=== PATIENT | male | born 1950 | race American Indian/Alaskan Native ===

== ENCOUNTER 2018-06-07 18:18 | Emergency (ER) | payer OTHER ==
[~2018-06-07] VITALS: Ht 170.2 cm; Wt 65.8 kg
[~2018-06-07 18:18] MED LIST: ALBU90OI INH; Catapres0.1 MG PO; DULO30; LORA.5; METF500; NIZA300; Naprosyn500 MG PO; OMEP20ER; OXYACE5T MT; PROM25 PO; PROP10; Percocet 5-3251 EACH PO; TELM40
[2018-06-08] MEDS ORDERED: OXYB5 PO (13:00)
[2018-06-08] MEDS ORDERED: OSTEO BI-FLEX1 EACH PO (13:00)
[2018-06-08] MEDS ORDERED: ESCI20 (13:00)
[2018-06-08] MEDS ORDERED: LEVFLO500 PO (14:19)
== END 2018-06-07 20:45 | disposition left against medical advice (07) ==
LOC: ER 18:18
DX: Z53.21 Procedure and treatment not carried out due to patient leaving prior to being seen by health care provider (principal)

== ENCOUNTER → 2018-06-27 | Outpatient (CLI) | payer OTHER ==
[~2018-06-27] MED LIST changes: +ESCI20; +LEVFLO500 PO; +OSTEO BI-FLEX1 EACH PO; +OXYB5 PO
[2018-06-27 11:48] LABS: Source, Urine Clean Catch
[2018-06-27 12:46] LABS: Red Blood Cells, Urine 50-100 /hpf (0-2)
[2018-06-27 12:47] LABS: Bacteria Few /hpf; Squamous Epithelial Cells Not Seen /hpf (Few)
[2018-06-27 12:51] LABS: Renal Epithelial Rare /hpf (0-Rare)
[2018-06-27 12:52] LABS: Mucus Light (0-Heavy)
== END | disposition home or self-care (01) ==
LOC: LAB SHORT 11:46 → LAB 11:46 → LAB FUT 06-11 15:20
PROVIDERS: Urology
DX: R31.0 Gross hematuria (principal)
CPT/HCPCS: 81015; 87086

== ENCOUNTER 2019-04-30 13:26 | Inpatient (IN) | payer OTHER ==
[~2019-04-30] VITALS: Ht 170.2 cm; Wt 66.5 kg
[~2019-04-30 13:26] MED LIST changes: +ALBU90OI61 INH; +Depo-Testos200 MG/ML IM; +ESCI20 PO
[2019-04-30] MEDS ORDERED: OXYC10TA19 PO (13:50)
[2019-04-30] MEDS ORDERED: Catapres0.2 MG PO (13:51)
[2019-04-30] MEDS ORDERED: OXYB5 PO (13:51)
[2019-04-30] MEDS ORDERED: ESCI20 PO (13:51)
[2019-04-30 14:06] LABS: BASOPHILS ABSOLUTE AUTO 0.03 K/mm3 (0.00-0.23); BASOPHILS PERCENT AUTO 0 % (0-2); EOSINOPHILS ABSOLUTE AUTO 0.23 K/mm3 (0.00-0.68); EOSINOPHILS PERCENT AUTO 2 % (0-6); Hematocrit 34.2 % (37.0-53.0); Hemoglobin 11.5 g/dL (13.5-17.5); IMMATURE GRAN ABSOLUTE AUTO 0.06 K/mm3 (0.00-0.10); IMMATURE GRAN PERCENT AUTO 1 % (0-1); LYMPHOCYTES ABSOLUTE AUTO 0.79 K/mm3 (0.84-5.20); LYMPHOCYTES PERCENT AUTO 7 % (21-46); MONOCYTES ABSOLUTE AUTO 0.63 K/mm3 (0.16-1.47); MONOCYTES PERCENT AUTO 6 % (4-13); Mean Corpuscular HGB 32.8 pg (26.0-34.0); Mean Corpuscular HGB Conc 33.6 g/dL (31.5-36.5); Mean Corpuscular Volume 97 fL (80-100); Mean Platelet Volume 8.8 fL (9.1-12.4); NEUTROPHILS ABSOLUTE AUTO 9.56 K/mm3 (1.96-9.15); NEUTROPHILS PERCENT AUTO 85 % (41-73); Platelet Count 208 K/mm3 (150-400); RDW Coefficient Variation 13.2 % (11.7-14.2); RDW Standard Deviation 47.3 fL (35.1-46.3); Red Blood Cell Count 3.51 M/mm3 (4.30-5.90)
[2019-04-30 14:13] LABS: Alanine Aminotransfer (ALT/SGP 23 U/L (12-78); Albumin, Blood 2.8 g/dL (3.4-5.0); Albumin/Globulin Ratio 0.7 (0.8-1.8); Alk Phos 102 U/L (50-136); Anion Gap 5 mmol/L (6-16); Aspartate Aminotrans (AST/SGOT 29 U/L (12-37); Bilirubin, Total 0.2 mg/dL (0.1-1.0); Blood Urea Nitrogen 7 mg/dL (8-24); Bun/Creatinine Ratio 13.8 (12.0-20.0); CO2, Blood 35 mmol/L (21-32); Calcium, Blood 10.3 mg/dL (8.5-10.1); Chloride, Blood 93 mmol/L (98-108); Creatinine, Blood 0.51 mg/dL (0.60-1.20); Globulin, Blood 3.9 g/dL (2.2-4.0); Glomerular Filtration Rate >60 (60-); Glucose, Blood 96 mg/dL (70-99); Potassium, Blood 3.4 mmol/L (3.5-5.5); Sodium, Blood 133 mmol/L (136-145); Total Protein, Blood 6.7 g/dL (6.4-8.2); Troponin I <0.015 ng/mL (0.000-0.040)
[2019-04-30 17:17] LABS: International Normalized Ratio 0.99; Prothrombin Time Results 10.6 Sec (9.7-11.5)
--- NOTE | 2019-04-30 18:00 | NUR ---
ASSUMED PATIENT CARE. PATIENT ARRIVED FROM ED, NO SIGNS OF ACUTE RESPIRATORY DISTRESS.
[2019-04-30] MEDS ORDERED: FLUT1DIS5 INH (19:31)
--- NOTE | 2019-04-30 19:31 | NUR ---
PATIENT ARRIVED FROM ED THIS EVENING. HISTORY OF BLADDER CANCER, TUMORS PRESSING ONE ON VENA CAVA, AND ONE IN ESOPHAGEAL REGION ALSO PRESSING ON INTERNAL JUGULAR. PATIENT ENDORSES SOB, BUT DENIES CHEST PAIN AND PRESSURE. PATIENT ON 10 L OXYGEN WITH O2 SATURATION OF 98-99%. AT BEDSIDE. PATIENT AND ENDORSE THAT PATIENT'S VOICE HAS BEEN CHANGING AND HE HAS INCREASED DIFFICULTY SPEAKING IN THE LAST FEW DAYS. DR. CUENCA CONSULTED DR. ALLRED FROM RADIATION THERAPY TO COME TO BEDSIDE TO ASSESS PATIENT. PLAN IS TO HAVE PATIENT GO TO RADIATION WHILE HERE AT HOSPITAL.
[2019-04-30] MEDS ORDERED: ALBU90OI INH (19:32)
--- NOTE | 2019-04-30 22:00 | NUR ---
EVENT NOTE CONTACTED BY PHARMACY AND NOTIFIED THAT HEPARIN GTT WAS NOT CHARTED STARTED. PER ANDER JACKSON, HEPARIN WAS VERIFIED RUNNING DURING BEDSIDE REPORT AT 1900. CALLED DAY SHIFT RN'S OTONIEL AND PETAR AND DETERMINED THAT HEPARIN GTT WAS STARTED AT 1815 AND WAS SCANNED BUT MUST NOT HAVE BEEN SUBMITTED THROUGH TO CHART. UPDATED ANDER JACKSON AND WILL CONTINUE PER PHARMACY ORDERS.
[2019-05-01 00:26] LABS: BASOPHILS ABSOLUTE AUTO 0.01 K/mm3 (0.00-0.23); BASOPHILS PERCENT AUTO 0 % (0-2); EOSINOPHILS ABSOLUTE AUTO 0.01 K/mm3 (0.00-0.68); EOSINOPHILS PERCENT AUTO 0 % (0-6); Hematocrit 33.9 % (37.0-53.0); IMMATURE GRAN ABSOLUTE AUTO 0.05 K/mm3 (0.00-0.10); IMMATURE GRAN PERCENT AUTO 1 % (0-1); LYMPHOCYTES ABSOLUTE AUTO 0.26 K/mm3 (0.84-5.20); LYMPHOCYTES PERCENT AUTO 2 % (21-46); MONOCYTES ABSOLUTE AUTO 0.05 K/mm3 (0.16-1.47); MONOCYTES PERCENT AUTO 1 % (4-13); Mean Corpuscular HGB 32.2 pg (26.0-34.0); Mean Corpuscular HGB Conc 32.4 g/dL (31.5-36.5); Mean Corpuscular Volume 99 fL (80-100); Mean Platelet Volume 8.3 fL (9.1-12.4); NEUTROPHILS ABSOLUTE AUTO 10.55 K/mm3 (1.96-9.15); NEUTROPHILS PERCENT AUTO 96 % (41-73); Platelet Count 189 K/mm3 (150-400); RDW Coefficient Variation 13.2 % (11.7-14.2); RDW Standard Deviation 48.2 fL (35.1-46.3); Red Blood Cell Count 3.42 M/mm3 (4.30-5.90); White Blood Cell Count 10.93 K/mm3 (4.00-11.30)
[2019-05-01 00:46] LABS: Alanine Aminotransfer (ALT/SGP 23 U/L (12-78); Albumin, Blood 2.7 g/dL (3.4-5.0); Albumin/Globulin Ratio 0.7 (0.8-1.8); Alk Phos 98 U/L (50-136); Anion Gap 5 mmol/L (6-16); Aspartate Aminotrans (AST/SGOT 26 U/L (12-37); Bilirubin, Total 0.2 mg/dL (0.1-1.0); Blood Urea Nitrogen 9 mg/dL (8-24); Bun/Creatinine Ratio 15.6 (12.0-20.0); CO2, Blood 35 mmol/L (21-32); Calcium, Blood 9.9 mg/dL (8.5-10.1); Chloride, Blood 94 mmol/L (98-108); Creatinine, Blood 0.58 mg/dL (0.60-1.20); Globulin, Blood 3.7 g/dL (2.2-4.0); Glomerular Filtration Rate >60 (60-); Glucose, Blood 97 mg/dL (70-99); Magnesium, Blood 1.4 mg/dL (1.6-2.4); Potassium, Blood 4.1 mmol/L (3.5-5.5); Sodium, Blood 134 mmol/L (136-145); Total Protein, Blood 6.4 g/dL (6.4-8.2)
[2019-05-01 00:50] LABS: International Normalized Ratio 1.02; Prothrombin Time Results 10.9 Sec (9.7-11.5)
--- NOTE | 2019-05-01 07:36 | NUR ---
SHIFT SUMMARY PT A&O; AT BEDSIDE; O2 SATS >94 ON 8 L NC; LUNG SOUNDS DIM; VSS; DENIES CHEST PAIN; C/O SOB AT TIMES AND BECOMES QUITE ANXIOUS; IMPROVES W/ COACHING; SLEPT A FEW HOURS IN BETWEEN INTERVENTIONS; C/O PAIN OF JOINTS STATES OXYCODONE PROVIDES RELIEF; EDUCATION ON FLUTTER VALVE AND PURSED LIP BREATHING GIVEN; RT PROVIDED SIGNIFICANT EDUCATION WELL; HEP GTT INFUSING; MONITORED BY PHARMACY; CALL LIGHT IN REACH; BED IN LOWEST POSITION; REPORT GIVEN TO DAY SHIFT RN.
--- NOTE | 2019-05-01 08:32 | NUR ---
Call from the Cancer Center stating that pt should be transported from PCU to their center today for radaiation appointment at 0930. Called cancer center at this time to verify accomodations for heparin gtt as well as immobility of pt and inability to stand/transfer from the bed without maximum assistance. Nurse confirmed ability of the center to accomodate for his immobility, and Dr. Avila would prefer that the heparin gtt be off for the hour of his radiation treatment.
--- NOTE | 2019-05-01 08:34 | NUR ---
AM NOTE... ASSUMED CARE OF PT APROX 0700. PT IS A&Ox4 AND WAS ADMITTED FOR ACUTE RESP FAILURE. PT IS ON 8L HI FLOW NC WITH O2 SATS AT 100%, PT BECOMES VERY DYSPNIC WITH ANY ACTIVITY AND BECOMES VERY ANXIOUS WELL. PT'S OTHER VS STABLE AT THIS TIME. L/S RUB AND COARSNESS HEARD T/O LOUDER ON THE FRONT THAN THE PT'S BACK. PT'S HAS BEEN TURNING UP THE PT'S O2 AFTER NURSING STAFF AND RT STAFF HAVE PROVIDED EDUCATION TO THE PT AND HIS , PT STATES THAT IF HE CAN'T FEEL THE O2 IN HIS NOSE HE IS NOT GETTIN ANY OXYGEN AND BEGINS TO PANIC. PT'S AT THE BEDSIDE. CALL LIGHT IN REACH WILL CONTINUE TO MONITOR.
--- NOTE | 2019-05-01 08:46 | NUR ---
Dr. Perez states heparin gtt will be stopped. Cancer center updated MANUEL Duran, notified.
--- NOTE | 2019-05-01 12:27 | NUR ---
Pt returned via [facility] to PCU room 11.
--- NOTE | 2019-05-01 19:21 | NUR ---
arrived from pcu, report received from staff, pt a+o but very anxious, able to work on 3 L but feels sob even though stats stay above 90, family has moved o2 up to 8 and pt insists on keeping it there, explained ramifications of high o2 levels, resting in bed talking to visitors, when doing hand off pt asked to have o2 level raised back to 8.
[2019-05-02 04:48] LABS: Bicarbonate Venous 33.6 mmol/L (24.0-30.0); PCO2 Venous 47.3 mmHg (38-42); PO2 Venous 126 mmHg (38-42); pH Blood Venous 7.47 (7.34-7.37)
[2019-05-02 05:47] LABS: BASOPHILS ABSOLUTE AUTO 0.01 K/mm3 (0.00-0.23); BASOPHILS PERCENT AUTO 0 % (0-2); EOSINOPHILS PERCENT AUTO 0 % (0-6); Hematocrit 29.5 % (37.0-53.0); Hemoglobin 9.6 g/dL (13.5-17.5); IMMATURE GRAN ABSOLUTE AUTO 0.05 K/mm3 (0.00-0.10); IMMATURE GRAN PERCENT AUTO 0 % (0-1); LYMPHOCYTES ABSOLUTE AUTO 0.19 K/mm3 (0.84-5.20); LYMPHOCYTES PERCENT AUTO 1 % (21-46); MONOCYTES PERCENT AUTO 2 % (4-13); Mean Corpuscular HGB 31.8 pg (26.0-34.0); Mean Corpuscular HGB Conc 32.5 g/dL (31.5-36.5); Mean Corpuscular Volume 98 fL (80-100); NEUTROPHILS ABSOLUTE AUTO 13.14 K/mm3 (1.96-9.15); NEUTROPHILS PERCENT AUTO 97 % (41-73); Platelet Count 196 K/mm3 (150-400); RDW Coefficient Variation 13.2 % (11.7-14.2); RDW Standard Deviation 46.9 fL (35.1-46.3); Red Blood Cell Count 3.02 M/mm3 (4.30-5.90); White Blood Cell Count 13.59 K/mm3 (4.00-11.30)
[2019-05-02 06:12] LABS: Anion Gap 3 mmol/L (6-16); Blood Urea Nitrogen 17 mg/dL (8-24); CO2, Blood 34 mmol/L (21-32); Calcium, Blood 9.9 mg/dL (8.5-10.1); Chloride, Blood 98 mmol/L (98-108); Creatinine, Blood 0.53 mg/dL (0.60-1.20); Glomerular Filtration Rate >60 (60-); Glucose, Blood 118 mg/dL (70-99); Potassium, Blood 4.2 mmol/L (3.5-5.5); Sodium, Blood 135 mmol/L (136-145)
--- NOTE | 2019-05-02 07:32 | NUR ---
SHIFT SUMMARY PT IS PLEASANT AND COOPERATIVE WITH CARE. HE IS AAOX4. STARTED THE NIGHT ON 10LNC WAS INCREASED BY RT TO 11LNC, SATS IN MID 90'S. PT IS VERY ACTIVITY INTOLERANT AND DESATS EASILY WITH MINIMAL MOVEMENT. TREATED FOR PAIN PER EMAR TO GOOD EFFECT. TREATED FOR HTN PER EMAR. VSS. IN THE ROOM MUCH OF THE NIGHT AND IS HELPFUL WITH CARE. NO ACUTE CHANGES THIS NIGHT. REPORT TO ONCOMING RN.
--- NOTE | 2019-05-02 15:41 | NUR ---
[facility] PT ON HIS WAY TO THE [facility] FOR TREATMENTS, TAKEN VIA [facility] BY [facility]
[2019-05-03 04:40] LABS: BASOPHILS ABSOLUTE AUTO 0.02 K/mm3 (0.00-0.23); BASOPHILS PERCENT AUTO 0 % (0-2); EOSINOPHILS PERCENT AUTO 0 % (0-6); Hematocrit 31.2 % (37.0-53.0); Hemoglobin 10.1 g/dL (13.5-17.5); IMMATURE GRAN ABSOLUTE AUTO 0.07 K/mm3 (0.00-0.10); IMMATURE GRAN PERCENT AUTO 0 % (0-1); LYMPHOCYTES ABSOLUTE AUTO 0.11 K/mm3 (0.84-5.20); LYMPHOCYTES PERCENT AUTO 1 % (21-46); MONOCYTES ABSOLUTE AUTO 0.27 K/mm3 (0.16-1.47); MONOCYTES PERCENT AUTO 2 % (4-13); Mean Corpuscular HGB 31.9 pg (26.0-34.0); Mean Corpuscular HGB Conc 32.4 g/dL (31.5-36.5); Mean Corpuscular Volume 98 fL (80-100); Mean Platelet Volume 8.5 fL (9.1-12.4); NEUTROPHILS ABSOLUTE AUTO 15.95 K/mm3 (1.96-9.15); NEUTROPHILS PERCENT AUTO 97 % (41-73); Platelet Count 173 K/mm3 (150-400); RDW Coefficient Variation 13.2 % (11.7-14.2); RDW Standard Deviation 47.5 fL (35.1-46.3); Red Blood Cell Count 3.17 M/mm3 (4.30-5.90); White Blood Cell Count 16.42 K/mm3 (4.00-11.30)
[2019-05-03 04:56] LABS: Albumin, Blood 2.5 g/dL (3.4-5.0); Anion Gap 4 mmol/L (6-16); Blood Urea Nitrogen 23 mg/dL (8-24); Bun/Creatinine Ratio 43.6 (12.0-20.0); CO2, Blood 34 mmol/L (21-32); Calcium, Blood 10.1 mg/dL (8.5-10.1); Chloride, Blood 99 mmol/L (98-108); Creatinine, Blood 0.53 mg/dL (0.60-1.20); Glomerular Filtration Rate >60 (60-); Glucose, Blood 117 mg/dL (70-99); Phosphorus, Blood 1.9 mg/dL (2.5-4.9); Potassium, Blood 4.3 mmol/L (3.5-5.5); Sodium, Blood 137 mmol/L (136-145)
--- NOTE | 2019-05-03 05:45 | NUR ---
SHIFT SUMMARY PT HAS HAD NO ACUTE CHANGES THIS SHIFT, MEDICATED PER MAR FOR PAIN & ANXIETY, CLONIDINE ADMIN 1X FOR SBP 139, SPOUSE ACTIVE IN CARE & REMAINED @ BEDSIDE UNTIL 29, PT SLEEPING AT THIS TIME, CALL LIGHT IN REACH, WILL CONT TO MONITOR UNTIL REPORT GIVEN TO DAY RN.
--- NOTE | 2019-05-03 17:56 | NUR ---
SHIFT SUMMARY PT IS A/O X 4 BUT DROWSY AT TIMES. HE C/O ONGOING PAIN. PAIN MEDS HAVE BEEN GIVEN ORDERED AND EFFECTIVE. PT CONTINUES ON HI FLOW OXYGEN MANAGED BY RT. PT IS SCHEDULED FOR A SLEEP STUDY TONIGHT. PT WENT WITH VIA MEDICAL TRANSPORT TO HIS RADIATION TX. AFTER HIS RETURN DR ALLRED CALLED AND ASKED THAT DR MARI BE NOTIFIED OF A POSSIBLE PLUERAL EFFUSION, THE MESSAGE WAS RELAYED AND A 2 VIEW CXR WAS ORDERED AND COMPLETED. CHARGE NURSE WAS SUCCESSFUL IN PLACING A POWERGLIDE IN THE RUE. EDEMA REMAINS TO BUE AND THEY ARE ELEVATED ON PILLOWS. HAS REMAINED AT THE BEDSIDE THROUGHOUT THE DAY AND HELPS MAKES PATIENTS NEEDS KNOWN TO STAFF. PT IS RESTING IN BED AND CALL LIGHT IS IN REACH.
--- NOTE | 2019-05-04 00:10 | NUR ---
REPORT CALLED TO MANAGER CARGO 2320 PT XFER'D TO PCU7, REPORT GIVEN TO MANUEL BEST, FAMILY AT BEDSIDE DURING XFER AND MOVED PT'S BELONGINGS.
--- NOTE | 2019-05-04 00:51 | NUR ---
ASSUMED CARE OF PATIENT AT [facility] 2315 FROM MEDICAL ARIELLA Allen RN. PATIENT ARRIVED TO UNIT WITH EYES CLOSED; DROWSY; WAKES TO VERBAL STIMULUS AND TOUCH. PATIENT REPORTS PAIN THROUGHOUT. ORDER FOR ASP PRECAUTIONS; MEDS CRUSHED IN APPLESAUCE; WINSTON'S REPORTS PATIENT HAS BEEN TAKING MULTIPLE MEDICATIONS WTIH WATER "JUST FINE". PATIENT DENIES NUMBNESS, TINGLING, DIZZINESS OR NAUSEA. L/S ABSENT ON RIGHT SIDE. SR/ST ON TELE; OXYGEN SATURATION ABOVE 90% ON 60 FIO2 BIPAP; RESPIRATORY RATE 12-14. AIRVO FOR BREAKS FIO2 82%. BEDREST; Q2H TURNS. PG MARIMAR. PATIENT'S FAMILY ACCOMPANIED PATIENT TO PCU; LEFT HOME AROUND 0030. PATIENT INCONTINENT OF URINE UPON ARRIVAL TO UNIT; BEDDING AND GOWN CHANGED. 2X PIV S/L. PATIENT CURRENTLY RESTING IN BED; CALL LIGHT IN REACH; BED IN LOWEST POSISTION; BED ALARM ON; WILL CONTINUE TO MONITOR AND ASSESS UNTIL END OF SHIFT.
[2019-05-04 04:15] LABS: Hemoglobin 9.8 g/dL (13.5-17.5); Mean Corpuscular HGB 31.8 pg (26.0-34.0); Mean Corpuscular HGB Conc 31.6 g/dL (31.5-36.5); Mean Platelet Volume 8.9 fL (9.1-12.4); Platelet Count 153 K/mm3 (150-400); RDW Coefficient Variation 13.3 % (11.7-14.2); RDW Standard Deviation 49.5 fL (35.1-46.3); Red Blood Cell Count 3.08 M/mm3 (4.30-5.90); White Blood Cell Count 14.14 K/mm3 (4.00-11.30)
[2019-05-04 04:18] LABS: Mean Corpuscular Volume 101 fL (80-100)
[2019-05-04 04:37] LABS: Albumin, Blood 2.4 g/dL (3.4-5.0); Anion Gap 3 mmol/L (6-16); Blood Urea Nitrogen 24 mg/dL (8-24); CO2, Blood 37 mmol/L (21-32); Chloride, Blood 98 mmol/L (98-108); Creatinine, Blood 0.63 mg/dL (0.60-1.20); Glomerular Filtration Rate >60 (60-); Glucose, Blood 113 mg/dL (70-99); Phosphorus, Blood 2.5 mg/dL (2.5-4.9); Potassium, Blood 4.8 mmol/L (3.5-5.5); Sodium, Blood 138 mmol/L (136-145)
--- NOTE | 2019-05-04 06:13 | NUR ---
WINSTON SLEPT ABOUT 5 HOURS SINCE ARRIVAL TO PCU. TITRATED DOWN TO 70% FIO2 ON AIRVO AND SWITCHED FROM BIPAP SETTINGS 60% TO CPAP SETTINGS. VSS. BLOOD PRESSURE IMPROVED WITH PRN MEDICATION. WILL CONTINUE TO MONITOR AND ASSESS UNTIL END OF SHIFT.
--- NOTE | 2019-05-04 11:40 | NUR ---
Pt resting in bed upon arrival. Pt reports 7/10 pain and states the pain is in his bones. Pt reports the pain does not get below a 7/10 with current regimen. Pt also reports dyspnea that worsens with exertion. Pt's family at bedside. Listened as Pt's expresses concerns with not knowing if Pt will return to baseline and assisting Pt with his care. She also expresses concerns regarding the need to go back to work at some point before her PTO runs out. Discussed the possibility of needing to consider highering caregivers to assit with care needs. Discussed pain regimen further with Pt and family agreeing to try the toradol to help manage pain. No other concerns reported at this time. Spoke with bedside MANUEL Castro, discussed case, and reported Pt's pain. Palliative Care will remain available for symptom management and therapeutic visits.
--- NOTE | 2019-05-04 14:34 | NUR ---
Brief F/U visit for symptom management. Pt reports Toradol has helped but is reporting 5/10 pain. Offered oxycodone and Pt is agreeable. Spoke with bedside RN Anna and reported Pt's pain. Anna will offer oxycodone. No other concerns reported at this time. Palliative Care will remain available.
--- NOTE | 2019-05-04 17:40 | NUR ---
SHIFT SUMMARY PATIENT MEDICATED FREQUENTLY FOR PAIN ALTERNATING OXYCODONE AND TORADOL TO GOOD EFFECT. PATIENT ALTERNATING BETWEEN BIPAP AT 60% FI02 AND AIRVO AT 69% THIS SHIFT. PATIENT REPOSITIONED Q2 IN BED. WEEPING EDEMA IN ARMS. PATIETN DROWSY AT TIMES. AT BEDSIDE. DR. CUENCA AND DR. CHOWDARY CONSULTED ON PATIENT. PATIENT HAD CHEST PHYSIOTHERAPY THIS AFTERNOON. PATIENT MAY HAVE THORACENTISIS. CHEST XRAY IN AM.
--- NOTE | 2019-05-04 19:15 | NUR ---
RECEIVED REPORT FROM MANUEL HERRERA. ASSUMED CARE OF PT. PT SITTING UP IN BED COMFORTABLY AT THIS TIME, NO S/S ACUTE DISTRESS NOTED. O2 SATS STABLE AT THIS TIME ON AIRVO. AT THE BEDSIDE. PT DENIES ANY NEEDS AT THIS TIME, CALL LIGHT AND POSSESSIONS IN REACH, WILL CONTINUE TO MONITOR.
--- NOTE | 2019-05-04 19:32 | NUR ---
THIS RN AT BEDSIDE OBTAINING VS. PT O2 SATURATION DROPPED TO 74-78% ON AIRVO. PT STATES, "I NEED THE BIPAP." PT PLACED ON BIPAP. O2 SATURATIONS RETURNED TO 90-92%. REQUESTING BREATHING TX AND "MORE AIR." PT PLACED IN POSITION OF COMFORT, RESPIRATORY THERAPY PAGED. WILL CONTINUE TO MONITOR AND REASSESS.
--- NOTE | 2019-05-04 22:00 | NUR ---
PT REPORTING CHEST PAIN, HR TRENDING IN THE 140'S. CALLED CHARLINE NURSE PRACTITIONER REGARDING PT CONDITION. PHYSICIAN TO ENTER ORDERS INTO [employer]. WILL CONTINUE TO MONITOR.
--- NOTE | 2019-05-04 23:41 | NUR ---
UPDATE: PT VOICING NO FURTHER C/O CP, APPEARS TO BE RESTING COMFORTABLY. O2 SATS REMAIN STABLE ON BIPAP, HR IN 100'S AT THIS TIME.
--- NOTE | 2019-05-05 06:52 | NUR ---
SHIFT SUMMARY PT SLEEPING PEACEFULLY, NO S/S ACUTE DISTRESS NOTED. WAS MONITORED EVERY 1-2 HOURS WITH NEEDS MET. O2 SATS AND BP STABLE. SLEPT ON AND OFF T/O NIGHT. DENIES ANY FURTHER NEEDS AT THIS TIME. CALL LIGHT AND POSSESSIONS IN REACH, BED IN LOWEST POSITION.
--- NOTE | 2019-05-05 13:58 | NUR ---
Pt resting in bed with at bedside. Bedside RN present offering pain medication. Pt reports 7/10 pain. Asked Pt and if they had any questions regarding Dr Mendoza's discussion. Pt reports anxiety from visit and states he is trying not to think about it yet. reports Pt and her have not discussed things yet. Pt reports needing to talk with other family as well. Pt and express appreciation of visit. Spoke with bedside RN Hardik and discussed case. Palliative Care will remain available for symptom management and therapeutic visits.
--- NOTE | 2019-05-05 14:41 | NUR ---
PATIENT GAVE THIS STUDENT PERMISSION TO PROVIDE CARE ON 05/06/19
--- NOTE | 2019-05-05 20:23 | NUR ---
SHIFT SUMMARY NO ACUTE CHANGES NOTED FROM ASSESSMENT. PT HAS BEEN A&O THROUGH THE DAY, TOLERATING AIRVO VS BIPAP. PT BECOMES ANXIOUS QUICKLY AND DURING THAT TIME HIS HR WILL INCREASE QUICKLY AND HIS RESP BECOME LABORED. ONCE THE PT IS DISTRACTED AND CALMED DOWN HIS VS RETURN TO BASELINE. THE PT'S HAS BEEN AT THE BEDSIDE THROUGH THE DAY AND ASSISTS WITH CARE. IV ABX INFUSED PER EMAR. PAIN MANAGED WITH OXYCONTIN/TORADOL. BEDSIDE REPORT WAS GIVEN TO AMIE RN. CALL LIGHT IN REACH, IS AT THE BEDSIDE.
--- NOTE | 2019-05-06 05:44 | NUR ---
Shift Summary Pt placed on BIPAP at 80% fio2 at approx 0300 after complaints of "I can't catch my breath". o2 saturations at 92% at time of SOB. Up until this point, pt tolerating airvo at 60% fio2. Pt with HTN, PRN BP medications given per orders and BP trending down. HR 120's. Pt with profound weeping edema to BUE. Arms are elevated on pillows wrapped in chucks pads, pads replaced once wet. Pt repositioned q2, oral care q4. Pt tolerating cares and cooperative with staff. Pt takes pills crushed in applesauce, no straws or thin liquids per orders. Pt systems assessment unchanged since initial assessment. Voiding in urinal in bed. MARIMAR powerglide patent and draws. Overall, pt is alert and oriented, flat affect. No acute events. Will continue to monitor.
[2019-05-06 09:25] LABS: BASOPHILS ABSOLUTE AUTO 0.03 K/mm3 (0.00-0.23); BASOPHILS PERCENT AUTO 0 % (0-2); EOSINOPHILS ABSOLUTE AUTO 0.01 K/mm3 (0.00-0.68); EOSINOPHILS PERCENT AUTO 0 % (0-6); Hematocrit 36.2 % (37.0-53.0); Hemoglobin 11.8 g/dL (13.5-17.5); IMMATURE GRAN ABSOLUTE AUTO 0.14 K/mm3 (0.00-0.10); IMMATURE GRAN PERCENT AUTO 1 % (0-1); LYMPHOCYTES PERCENT AUTO 1 % (21-46); MONOCYTES ABSOLUTE AUTO 0.62 K/mm3 (0.16-1.47); MONOCYTES PERCENT AUTO 4 % (4-13); Mean Corpuscular HGB 32.3 pg (26.0-34.0); Mean Corpuscular HGB Conc 32.6 g/dL (31.5-36.5); Mean Corpuscular Volume 99 fL (80-100); NEUTROPHILS ABSOLUTE AUTO 16.87 K/mm3 (1.96-9.15); NEUTROPHILS PERCENT AUTO 94 % (41-73); RDW Coefficient Variation 13.5 % (11.7-14.2); RDW Standard Deviation 49.1 fL (35.1-46.3); Red Blood Cell Count 3.65 M/mm3 (4.30-5.90); White Blood Cell Count 17.87 K/mm3 (4.00-11.30)
[2019-05-06 09:41] LABS: Anion Gap 2 mmol/L (6-16); Blood Urea Nitrogen 35 mg/dL (8-24); Bun/Creatinine Ratio 74.8 (12.0-20.0); CO2, Blood 35 mmol/L (21-32); Calcium, Blood 10.6 mg/dL (8.5-10.1); Chloride, Blood 98 mmol/L (98-108); Creatinine, Blood 0.47 mg/dL (0.60-1.20); Glomerular Filtration Rate >60 (60-); Glucose, Blood 103 mg/dL (70-99); Mean Platelet Volume 9.4 fL (9.1-12.4); Platelet Count 194 K/mm3 (150-400); Potassium, Blood 4.8 mmol/L (3.5-5.5); Sodium, Blood 135 mmol/L (136-145)
--- NOTE | 2019-05-06 10:46 | NUR ---
Pt resting in bed and appears dyspneic as evidenced by work of breathing. Pt also appears mildly anxious. Respiratory Therapist Jean present during visit. Jean considering placing Pt on BIPAP. Discussed long acting morphine with Pt to help with pain and dyspnea. Pt is agreeable and this RN will discuss change in regimen with hospitalist. Palliative Care will remain available.
--- NOTE | 2019-05-06 18:50 | NUR ---
PCU DAYSHIFT SUMMARY PATIENT REMAINS ALERT AND ORIENTED X4. RESP LABORED ON AIRVO AND UNLABORED ON BIPAP. PATIENT REMAINS IN SINUS TACH 110-120'S T/O SHIFT. PATIENTS FIO2 WENT UP THIS SHIFT FROM 60% FIO2 TO 100% FIO2 - MD WEEKS NOTIFIED AND PATIENT AND EDUCATED ON NEXT STEP OF INTUBATION WHILE AWAITING NEXT CHEMO TREATMENT ON 05/06 PER MD CUENCA. PATIENT HAS WEEPING BILATERAL UPPER ARM EDEMA. POWER GLIDE IN PLACE TKO AND ANTIBIOTIC PER EMAR. PATIENT ON BEDREST T/O DAY. LARGE BM THIS SHIFT. PATIENT URINATING IN URINAL. MAX ASSIST WITH TRANSFERS. WILL CONTINUE TO MONITOR AND GIVE REPORT TO NOC SHIFT RN.
--- NOTE | 2019-05-06 19:24 | NUR ---
TRANSFER TO ICU PATIENT BEING TRANSFERED TO ICU FOR CONTINUED RESPIRTORY NEED. PATIENT TRANSFERED TO ICU 16. AT BEDSIDE. REPORTED TO GUEST SERVICE SUPERVISOR.
--- NOTE | 2019-05-06 20:22 | NUR ---
ASSUMED PT CARE AT 1930 FROM MANUEL HERRERA PT TRANSFERRED FROM PCU D/T INCREASING OXYGEN NEED. PT ARRIVED ON BIPAP 17/12 WITH FIO2 100%. PT SITTING UPRIGHT IN BED WITH SOB NOTED WITH MINIMAL EXERTION. PT APPEARS ALERT AND ORIENTED. VERY PLEASANT AND COOPERATIVE WITH CARES. DR. WEEKS AT BEDSIDE SHORTLY AFTER ARRIVAL TO DISCUSS WITH PT AND PROGNOSIS OF PT'S TERMINAL DISEASE. DR. WEEKS DISCUSSED MULTIPLE OPTIONS AND OUTCOMES WITH BOTH AND PT. BOTH ARE TO DISCUSS WITH THEIR INTERNATIONAL MARKETING COORDINATOR AND LET DR. WEEKS KNOW THEIR DECISION REGARDING WHETHER THEY WANT TO MOVE FORWARD WITH INTUBATION AND CHEMO OR NOT. BOTH APPEAR UNDERSTANDING OF ALL OPTIONS DISCUSSED BY DR. WEEKS AND HAD NO FURTHER QUESTIONS. WILL STAY AVAILABLE FOR ANY NEEDS. THE DECISION WAS MADE TO BE A LIMITED CODE. NO CPR OR DEFIBRILLATION AT THIS TIME. DECISION TO INTUBATE IS STILL PENDING FAMILY DISCUSSES FURTHER.
--- NOTE | 2019-05-06 20:29 | NUR ---
PT SWITCHED OVER TO AIRVO TO HAVE CONVERSATION WITH TABLE FILLER AND . SETTINGS ARE 60L WITH 85% FIO2 IN ORDER TO KEEP OXYGEN SATURATIONS 88% OR GREATER.
--- NOTE | 2019-05-07 06:32 | NUR ---
END OF SHIFT SUMMARY NO SIGNIFICANT EVENTS OVERNIGHT. PT TOLERATED AIRVO 60LPM WITH 88% FIO2. HOWEVER, WHEN PT WOULD FALL ASLEEP HIS RESPIRATORY RATE WOULD DECREASE TO BELOW 10; THEREFORE, FELT MORE COMFORTABLE WITH PT SLEEPING WITH BIPAP D/T BACK UP RATE OF 12. BIPAP SETTINGS REMAINED UNCHANGED; 15/10; FIO2 100%. PT WAS ABLE TO TITRATE DOWN TO 80% FIO2; HOWEVER, WHEN HE BECOMES ANXIOUS HE QUICKLY NEEDS MORE OXYGEN REQUIREMENTS. MEDICATED WITH XANAX PER ORDERS, WHICH SIGNIFICANTLY HELPED PT FEEL RELAXED AND SLEEP WELL. HELD LOPRESSOR AT HS D/T BLOOD PRESSURES ON THE SOFTER SIDE, AND ONCE PT FELL ASLEEP HIS BLOOD PRESSURES DROPPED EVEN MORE. SBP'S 80'S, AND MAPS REMAINED ABOVE 60. PT REMAINS VERY EDEMATOUS TO BUE'S; WEEPING. HR 100-120'S WITH SINUS TACHYCARDIA NOTED. PT VOIDING ADEQUATELY IN URINAL WITH ASSIST OF . HAS BEEN AT BEDSIDE ALL NIGHT AND HAS BEEN VERY PLEASANT AND COOPERATIVE WITH CARES. PT NOTED TO COUGH MORE ON THIN LIQUIDS THIS MORNING AFTER MORNING MED ADMINISTRATION; THEREFORE, THICKENED LIQUIDS. WILL CONTINUE TO MONITOR UNTIL REPORT IS HANDED OFF TO ONCOMING RN.
--- NOTE | 2019-05-07 08:45 | NUR ---
ASSESSMENT- PT AWAKENS TO NAME, ALERT, COOPERATIVE, ANSWERS QUESTIONS, SLOW TO RESPOND AT TIMES. C/O GENERALIZED PAIN CHEST AREA AND WITH BREATHING-RATES 7-8 ON SCALE. SINUS TACH WITH PACS. BP STABLE 90-100'S. RESPIRATORY RATE 12 BPM. CHANGED FROM BIPAP TO HIGH-FLOW OXYGEN PER REQUEST. ORAL CARE DONE. ORAL THRUSH. BEDSIDE SWALLOW BEING DONE. ABLE TO FEED SELF. RIGHT UPPER ARM ML IV INTACT. BILATERAL ARMS SWOLLEN, WEEPING EDEMA, POSITIONED UP ON PILLOWS. VOIDING PER URINAL. AT BEDSIDE, ASSISTED WITH REPOSITIONING.
--- NOTE | 2019-05-07 09:00 | NUR ---
Echocardiogram using 0.75ml of Definity contrast performed.
--- NOTE | 2019-05-07 11:23 | NUR ---
DR. WEEKS HERE-UPDATED. PT TOLERATING AERVO-STATES BREATHING PAINFUL AT TIMES. FATIGUES EASILY. SINUS TACHYCARDIA, SBP LOW. AWAKE, ALERT.
--- NOTE | 2019-05-07 13:54 | NUR ---
RESPIRATORY STATUS STABLE ON HIGH-FLOW OXYGEN. RR 12-16. REMAINS SINUS TACH. SBP 90'S. FAMILY DISCUSSING PLAN OF CARE-REGARDING PLAN FOR CHEMO, CONTINUED TREATMENT, INTUBATION.
--- NOTE | 2019-05-07 14:58 | NUR ---
FAMILY HERE, DISCUSSION WITH DR. WEEKS. PLANS FOR COMFORT CARE STATUS. BP CUFF OFF. PT AWAKE, ALERT. C/O INCREASED PAIN-RX GIVEN
--- NOTE | 2019-05-07 17:42 | NUR ---
Spoke with bedside RN Gala and discussed case prior to Pt visit. Pt and family have decided against pursuing cancer treatment and elected comfort care. Pt resting in bed upon arrival with family at bedside. Engaged in therapeutic listening as Pt reports his goals of care. Confirmed Pt's understanding of comfort care philosophy with understanding appearing appropriate. Family reports agreement with Pt's decision. Offered emotional support and continued therapeutic listening. Family requests airvo and bipap as needed due to other family members not arriving until Sunday. Pt and family expresses appreciation of visit. Spoke with Dr Finnegan and discussed case. Dr Finnegan has placed comfort care order and comfort medications. Palliative Care will remain available for symptom management and therapeutic visits.
--- NOTE | 2019-05-07 18:04 | NUR ---
COMFORT CARE STATUS. PT AWAKE, ALERT, FAMILY AT BEDSIDE. PLANS FOR AERVO FOR NOW TOLERATED, PT'S REQUESTS OPTION OF BIPAP USE IF NEEDED-STATES UNDERSTANDS COMFORT CARE STATUS BUT MORE FAMILY ARRIVING SUNDAY. UPDATE TO DR. WEEKS-PCU STATUS D/T MAY REQUIRE BIPAP FOR SUPPORT. C/O ANXIETY-IMPROVED WITH ATIVAN. EATING PUREED DINNER BY SELF.
--- NOTE | 2019-05-07 18:54 | NUR ---
REPORT CALLED TO CHARLINE RN, PT TRANSFERRED TO PCU IN BED. PT TOLERATED TRANSFER WELL ON NRB MASK. BACK TO AERVO AT 60 L/MIN 94%. AWAKE, ALERT. FAMILY AT BEDSIDE.
--- NOTE | 2019-05-07 19:10 | NUR ---
ASSUMED CARE PT TRANSFERRED TO PCU FROM ICU VIA HOSPITAL BED, RECEIVED REPORT FROM MANUEL OLIVIER. PT AND DAUGHTER AT THE BEDSIDE. PT A&O, ABLE TO MAKE NEEDS KNOWN APPROPRIATELY. O2 SATS 94-96% ON 60%L AIRVO, RR EVEN AND UNLABORED. BUE WEEPING, FLOATED ON PILLOWS BILATERALLY. PT ON COMFORT CARE, APPEARS PEACEFUL, NO S/S DISCOMFORT NOTED AT THIS TIME. PT AND FAMILY DENY ANY OTHER NEEDS AT THIS TIME, CALL LIGHT AND POSSESSIONS IN REACH, HOB ELEVATED TO POSITION OF COMFORT. WILL CONTINUE TO MONITOR.
--- NOTE | 2019-05-08 05:45 | NUR ---
SHIFT SUMMARY: PT HAS BEEN SLEEPING COMFORTABLY T/O NIGHT. O2 SATS STABLE ON 60% O2 PER AIRVO PRIOR TO DROPPING TO 88-90%. PT STATING, "I NEED MORE O2." THIS RN PLACING PT ON BIPAP, FIO2 AT 100%. O2 SATS NOW 90-94%, PT APPEARS INCREASINGLY COMFORTABLE, SHOWING DECREASED S/S RESPIRATORY DISTRESS. DENIES ANY FURTHER NEEDS AT THIS TIME, DOZING OFF TO SLEEP ONCE AGAIN. DAUGHTER REMAINS AT THE BEDSIDE. CALL LIGHT AND POSSESSIONS IN REACH. WILL CONTINUE TO MONITOR UNTIL REPORT GIVEN TO ONCOMING RN.
--- NOTE | 2019-05-08 06:50 | NUR ---
UPDATE: SPOKE TO DR. DOWD REGARDING PT'S REQUEST FOR PRN MEDICATION. ORDERS RECEIVED.
--- NOTE | 2019-05-08 08:00 | NUR ---
pt laying in bed, family at bedside, he is currently on airvo, he was sob, but recieved roxinol and breathing tx at 0730 and is more relaxed, spouce wanted v.s. so this was done, will reposition as requested, pain meds as needed. call light in reach.
--- NOTE | 2019-05-08 11:39 | NUR ---
Comfort Care Visit Pt resting in bed with Pt's at bedside. Offered therapeutic listening. Pt reports no discomfort at this time. No concerns reported at this time. Spoke with bedside RN George and discussed case. Palliative Care will remain available.
--- NOTE | 2019-05-08 12:03 | NUR ---
pt looks to be comfortable, at bedside, has been repositioned. no needs at this time. call light in reach.
--- NOTE | 2019-05-08 18:07 | NUR ---
pt seems to have been comfortable all day, did give him a dose of roxinol this afternoon. has been on and off the bipap and airvo as needed, no further changes this shift, call light in reach.
--- NOTE | 2019-05-08 19:15 | NUR ---
ASSUMED CARE RECEIVED REPORT FROM MANUEL SMITH. ASSUMED CARE OF PT. APPEARS TO BE COMFORTABLE AT THIS TIME, NO S/S ACUTE DISTRESS NOTED, O2 SATS STABLE ON BIPAP. CALL LIGHT AND POSSESSIONS IN REACH, WILL CONTINUE TO MONITOR.
--- NOTE | 2019-05-08 21:15 | NUR ---
UPDATE: THIS RN NOTIFIED BY REFUSE AND RECYCLING WORKER OF PT "COUGHING UP BLOOD." ASSESSED PT, COUGHED UP SMALL BLOOD CLOTS. O2 SATS REMAIN STABLE. FAMILY ASKING THIS RN IF THIS IS AN EXPECTED FINDING. CONCERNS ADDRESSED, REASSURED FAMILY OF PLAN TO MAINTAIN PT COMFORT. PT STATES HE IS COMFORTABLE AT THIS TIME, CALL LIGHT AND POSSESSIONS IN REACH. WILL CONTINUE TO MONITOR.
--- NOTE | 2019-05-09 07:00 | NUR ---
SHIFT SUMMARY: PT RESTING COMFORTABLY, IN NO ACUTE DISTRESS AT THIS TIME. SLEPT T/O NIGHT, O2 SATS STABLE ON AIRVO AND BIPAP. EXPERIENCED AN EPISODE OF INCREASED ALERTNESS EARLY THIS AM, ATTEMPTED TO CLIMB OOB, NO FURTHER EPISODES NOTED SINCE. PT KEPT COMFORTABLE, REMAINS AT THE BEDSIDE. CALL LIGHT AND POSSESSIONS IN REACH, REPORT GIVEN TO MANUEL SMITH.
--- NOTE | 2019-05-09 08:00 | NUR ---
pt laying in bed with eyes closed, he was medicated this am with roxinol and ativan, looks comfortable, at bedside, she states she isn't doing well, but was able to get some sleep durring the night, she reports pt all of the sudden was trying to get oob, the bed alarm woke her, and was able to direct him back to bed, she states a lot of family is coming in today, we talked about moving to a bigger room up on medical floor to accomidate, RT was asked about bipap, he felt that he would be good just on the airvo, will discuss further, depending on if going to be moved to hospice, will continue to monitor, to keep comfortable, call light in reach.
--- NOTE | 2019-05-09 10:58 | NUR ---
pt had a bedbath and linen change, became a bit agitated, but calmed as soon as left alone. call light in reach.
--- NOTE | 2019-05-09 16:48 | NUR ---
pt has been transfered to medical floor, report was given to recieving nurse, all belongings taken to new room, pt was medicated prior to moving.
--- NOTE | 2019-05-09 18:05 | NUR ---
new transfer from pcu, restless in bed, airvo 60/94%, offered pain medication, family in room, will continue to monitor and treat as appropriate until share bsr with staff and pt
--- NOTE | 2019-05-09 22:19 | NUR ---
PATIENT HAVING DIFFICULTY BREATHING AND REPORTS GENERALIZED PAIN AT A LEVEL OF 5/10. PATIENT MEDICATED WITH 10 MG ROXANOL FOR PAIN AND BREATHING DISCOMFORT. REPOSITIONED, ATTENDS CHANGED, AND IS SITTING UP IN BED.
--- NOTE | 2019-05-10 07:13 | NUR ---
SHIFT SUMMARY PATIENT OCCASIONALLY RESTLESS AND PAINFUL OVERNIGHT, SEEMED TO HAVE EXTRA EFFORT WHEN BREATHING. PATIENT MEDICATED PER EMAR FOR THESE ISSUES. IN ROOM. POWERGLIDE PATENT AND FLUSHED. MEPILEX PLACED ON PATIENT'S COCCYX. BED IN LOWEST POSITION WITH WHEELS LOCKED. CALL LIGHT WITHIN REACH. REPORT GIVEN TO ONCOMING RN.
--- NOTE | 2019-05-10 13:23 | NUR ---
comfort care pt, at bedside, medicated as prescribed at start of shift, still some agitation r/airvo, hospice nurse in to visit and assist family and pt, will continue to monitor and treat
--- NOTE | 2019-05-10 13:30 | NUR ---
[facility] C[facility] COMFORT CARE VISIT: Paged by staff that family member visiting and had questions. Upon arrival, at bedside, calming pt, who had just woken and was anxious, severely dyspnic, trying to get oob and taking O2 off repeatedly. Paged RN for administration of Roxanol per eMar. Pt repositioned in bed. Multiple blankets removed that pt was fighting with. Pt wearing attends, that are dry currently. Pt is not conversing, is too dyspnic to talk and may be having disorientation/agitation due to hypoxia and medications. I spoke with family as they shared in reminiscing, expressed concerns and stayed to ensure pt obtained relief of air hunger & agitation. He was able to settle his breathing, close eyes and rest after 10-15 minutes. , diomedes and other family members present. They are awaiting the arrival of another diomedes, driving from [facility] currently. [place] dad in the past few days and are aware that they will most likely not be able to see their dad before his demise. Pt appears to be actively dying. Family express desire to allow him to leave the O2 off as long as he is comfortable without the O2 once their daughter arrives. Male family member's questions answered. Supportive listening provided with all family members. Discussed the medications that he has available, frequency, s/s of impending to know so that they are not alarming to family. Family's expressed wishes and plans shared with RN. Case conferenced with him during and after my visit. RN or family will page me if they would like me to return. Time spent outside of pt's room with male family member who needed to talk his feelings thru. Pt's illness and EOL process has been a difficult one for this family member to watch. The whole family is very supportive of one another and grieving appropriately at this time. They are contacting family members who cannot be present. Comfort cart refreshed for them with GUARDIAN AD LITEM's help.
--- NOTE | 2019-05-10 16:13 | NUR ---
COMFORT CARE VISIT. SECOND VISIT TODAY. ADDITIONAL FAMILY HAS ARRIVED, REN FROM [place], FRIEN/NEIGHBOR/HOMEBIRTH MIDWIFE AND ONE ADDITIONAL FEMALE FAMILY MEMBER. FAMILY WITH QUESTIONS ON MEDICATIONS FOR S/S MANAGEMENT R/T REMOVING PT'S O2 PER PT PREFERNCE. QUESTIONS ANSWERED. SUPPORT OFFERED. CASE CONFERENCED WITH RN. PT APPEARS MORE COMFORTABLE THAN EARLIER TODAY.
--- NOTE | 2019-05-10 18:40 | NUR ---
family in room, they have decided to remove airvo to reduce anxiety in pt, medicated as requested and prescribed, asked dr for more medication when family removed airvo, currently resting and breathing quietly family at bedside, reposition and kelley care provided, will continue to monitor and treat until share bsr with noc nurse.
--- NOTE | 2019-05-10 19:29 | NUR ---
PATIENT HAVING SOME LABORED BREATHING, MEDICATED PER EMAR TO HELP EASE DIFFICULTY AND KEEP HIS ANXIETY AT BAY. PATIENT SLEEPING CURRENTLY.
--- NOTE | 2019-05-10 20:16 | NUR ---
PATIENT CURRENTLY SLEEPING. BREATHING IS EASIER. DISCUSSED PLAN WITH PATIENT'S ON HOW THEY WISH TO PROCEED WITH PAIN AND SYMPTOM MANAGEMENT.
--- NOTE | 2019-05-10 21:46 | NUR ---
PATIENT SLEEPING COMFORTABLY. IS STARTING TO HAVE SOME SECRETIONS IN HIS UPPER LUNGS, THEY ARE NOT CAUSING ANY INCREASED DIFFICULTY IN BREATHING FOR PATIENT. DISCUSSED WITH HIS THE OPTIONS AVAILABLE TO TREAT THE SECRETIONS. HER AND THIS NURSE AGREED THAT SINCE THEY ARE NOT BOTHERING HIM CURRENTLY, CONTINUED MONITORING WILL BE THE CURRENT COURSE OF ACTION.
--- NOTE | 2019-05-11 01:21 | NUR ---
05/09 @ 2347 PATIENT SLEEPING COMFORTABLY. APPEARANCE HAS TURNED TO CHAVIS IN COLOR.
--- NOTE | 2019-05-11 01:24 | NUR ---
PATIENT AT 0105. FAMILY AT BEDSIDE. DR DOWD NOTIFIED BY PHONE
== END 2019-05-11 01:05 | DRG 180 ==
LOC: ER 13:26 → PCU 16:01 → MEDS 05-01 13:33 → PCU 05-03 23:17 → ICUW 05-06 19:30 → PCU 05-07 18:41 → MEDS 05-09 16:52
PROVIDERS: Emergency Medicine; Internal Medicine; Internal Medicine Hematology & Oncology; Nurse Practitioner Acute Care; Pharmacist; ADMIT Internal Medicine
PROC: 5A09457 Assistance with Respiratory Ventilation, 24-96 Consecutive Hours, Continuous Positive Airway Pressure (ICD-10-PCS; principal; 2019-04-30)
DX: C78.02 Secondary malignant neoplasm of left lung (principal); J96.21 Acute and chronic respiratory failure with hypoxia; I87.1 Compression of vein; J98.11 Atelectasis; Z51.5 Encounter for palliative care; E87.1 Hypo-osmolality and hyponatremia; C79.51 Secondary malignant neoplasm of bone; C77.9 Secondary and unspecified malignant neoplasm of lymph node, unspecified; J44.1 Chronic obstructive pulmonary disease with (acute) exacerbation; C67.9 Malignant neoplasm of bladder, unspecified; I95.9 Hypotension, unspecified; E83.39 Other disorders of phosphorus metabolism; F41.9 Anxiety disorder, unspecified; F32.9 Major depressive disorder, single episode, unspecified; Z99.81 Dependence on supplemental oxygen; Z92.21 Personal history of antineoplastic chemotherapy; Z92.3 Personal history of irradiation; Z87.891 Personal history of nicotine dependence; Z88.2 Allergy status to sulfonamides; Z79.51 Long term (current) use of inhaled steroids; Z79.899 Other long term (current) drug therapy
CPT/HCPCS: 36415; 70491; 71045; 71046; 71260; 76604; 80048; 80053; 80069; 82803; 83735; 84145; 84484; 85025; 85027; 85610; 85730; 92526; 92610; 93005; 93010; 94640; 94660; 94667; 94760; 94762; 96365-59; 96368; 96375-59; 97110; 97162; 97530; 99285-25; A9270-GY; C8929; J0696; J1644; J1885; J2270; J2930; J3480; J7030; J7050; J7060; Q9957; Q9967